=== PATIENT | female | born 1980 | race Caucasian/White ===

== ENCOUNTER 2018-05-23 22:10 | Emergency (ER) | payer SELFPAY ==
[2018-05-23 22:36] VITALS: BP 107/71; PULSE 71; RESP 18; TEMP 98.1; O2SAT 100
[2018-05-23 23:45] LABS: BASO # 0.1 K/uL (0.0-0.2); BASO % 0.6 % (0.0-2.0); EOS # 0.1 K/uL (0.0-0.7); EOS % 1.2 % (0.0-4.0); HEMOGLOBIN 11.8 g/dL (12.0-16.0); LYMPH # 1.7 K/uL (1.0-4.3); LYMPH % 18.7 % (20.0-40.0); MEAN CELL VOLUME 96.5 fl (81.0-99.0); MEAN CORPUSCULAR HGB CONC 34.2 g/dL (33.0-37.0); MEAN PLATELET VOLUME 12.1 fl (7.2-11.7); MONO # 0.7 K/uL (0.0-0.8); MONO % 7.1 % (0.0-10.0); NEUT # 6.7 K/uL (1.8-7.0); NEUT % 72.4 % (50.0-75.0); RBC 3.57 Mil/uL (3.80-5.20); RED CELL DISTRIBUTION WIDTH 13.1 % (11.5-14.5); WHITE BLOOD COUNT 9.3 K/uL (4.8-10.8)
[2018-05-24 00:11] LABS: SQUAMOUS EPITHIAL 2 /hpf (0-5); URINE BACTERIA OCC (<OCC); URINE BILIRUBIN NEGATIVE (NEGATIVE); URINE BLOOD NEGATIVE (NEGATIVE); URINE CLARITY CLOUDY (Clear); URINE COLOR YELLOW (YELLOW); URINE GLUCOSE (UA) NEG (NEGATIVE); URINE LEUKOCYTE ESTERASE NEG Leu/uL (Negative); URINE PROTEIN NEGATIVE (NEGATIVE); URINE UROBILINOGEN 0.2-1.0 mg/dL (0.2-1.0)
--- NOTE | 2018-05-24 00:49 | ED PDOC ---
HPI: Female Pain Time Seen by Provider: 05/23/18 22:57 Chief Complaint (Nursing): Female Genitourinary Chief Complaint (Provider): Female Genitourinary History Per: Patient History/Exam Limitations: no limitations Onset/Duration Of Symptoms: Days (x7) Current Symptoms Are (Timing): Still Present Additional Complaint(s): 38 y/o female with a PMHx of presents to the ED for evaluation of vaginal bleeding and , onset one week ago. Patient reports she is visiting from [place]. Patient states while in [place] one week ago she developed vaginal bleeding. Patient reports of being evaluated in [place] and had a workup last where she had blood work and an US performed. Patient reports Beta-HCG level at that time was 30,600 and US showed 6 week . Patient states she was started on progesterone. Patient describes vaginal bleeding as spotting and coffee colored with no clots or pain. PAtient speaks Mauritian and history obtained through patient's friend who translated at her request; [employer] services were declined. PMD: no provider Past Medical History Reviewed: Historical Data, Nursing Documentation, Vital Signs Vital Signs: Last Vital Signs Temp 98.1 F 05/23/18 22:31 Pulse 71 05/23/18 22:31 Resp 18 05/23/18 22:31 BP 107/71 05/23/18 22:31 Pulse Ox 100 05/23/18 22:31 - Medical History PMH: No Chronic Diseases - Surgical History Surgical History: Other surgeries: Fallopian tube Blockage removal - Family History Family History: States: Unknown Family Hx - Allergies Allergies/Adverse Reactions: Allergies Allergy/AdvReac Type Severity Reaction Status Date / Time No Known Allergies Allergy Verified 05/23/18 22:31 Review of Systems ROS Statement: Except As Marked, All Systems Reviewed And Found Negative Genitourinary Female: Positive for: Vaginal Bleeding Physical Exam - Reviewed Nursing Documentation Reviewed: Yes Vital Signs Reviewed: Yes - Physical Exam Appears: Positive for: No Acute Distress Head Exam: Positive for: ATRAUMATIC, NORMOCEPHALIC Skin: Positive for: Normal Color, Warm, Dry Eye Exam: Positive for: Normal appearance, EOMI, PERRL Neck: Positive for: Normal, Painless ROM Cardiovascular/Chest: Positive for: Regular Rate, Rhythm. Negative for: Murmur Respiratory: Positive for: Normal Breath Sounds. Negative for: Respiratory Distress Gastrointestinal/Abdominal: Positive for: Normal Exam, Soft. Negative for: Te nderness Back: Positive for: Normal Inspection. Negative for: L CVA Tenderness, R CVA Tenderness, Vertebral Tenderness Extremity: Positive for: Normal ROM. Negative for: Deformity Neurologic/Psych: Positive for: Alert, full stack developer II-XII. Negative for: Motor/Sensory Deficits - Laboratory Results Result Diagrams: 05/23/18 23:25 Lab Results: Urine Color Yellow (YELLOW) 05/23/18 23:58 Urine Clarity Cloudy (Clear) 05/23/18 23:58 Urine pH 6.0 (5.0-8.0) 05/23/18 23:58 Ur Specific [place] 1.025 (1.003-1.030) 05/23/18 23:58 Urine Protein Negative mg/dL (NEGATIVE) 05/23/18 23:58 Urine Glucose (UA) Neg mg/dL (NEGATIVE) 05/23/18 23:58 Urine Ketones Trace mg/dL (NEGATIVE) 05/23/18 23:58 Urine Blood Negative (NEGATIVE) 05/23/18 23:58 Urine Nitrate Positive (NEGATIVE) H 05/23/18 23:58 Urine Bilirubin Negative (NEGATIVE) 05/23/18 23:58 Urine Urobilinogen 0.2-1.0 mg/dL (0.2-1.0) 05/23/18 23:58 Ur Leukocyte Esterase Neg Rosanne/uL (Negative) 05/23/18 23:58 Urine RBC (Auto) 3 /hpf (0-3) 05/23/18 23:58 Urine Microscopic WBC 3 /hpf (0-5) 05/23/18 23:58 Ur Squamous Epith Cells 2 /hpf (0-5) 05/23/18 23:58 Urine Bacteria Occ (<OCC) H 05/23/18 23:58 Beta HCG, Quant 79825.00 mIU/mL 05/23/18 23:25 - ECG O2 Sat by Pulse Oximetry: 100 (RA) Pulse Ox Interpretation: Normal Medical Decision Making Medical Decision Making: Time: 2256 Impression: 38 y/o female presenting with vaginal bleeding in early Plan: -- Type and Screen -- Beta-HCG, Quantitative -- ED Urine -- ED Urine Dipstick -- CBC with Differentials Time: 2338 Plan: -- US OB Transvaginal Time: 16 US RESULTS Findings: The uterus measures 8.6x5.6 cm. Normal cervical length measuring 4 cm. Closed cervix. Single, live intrauterine gestation. heart rate 126 beats per minute. Estimated gestational age 6 weeks and 3 days. Normal right ovary. Nonvisualization of the left ovary. Impression: Single, live intrauterine gestation. No abnormality is seen. Electronically signed on May 24, 2018 12:17:22 AM EST by: Robert Villatoro M.D., Certified by GAIL, K, Neuroradiology Time: 18 Plan: -- ABO/RH Type Time: 58 -- Patient is stable for discharge home with a diagnosis of a threatened miscarriage. Return precautions provided. Patient instructed to follow up with OB on return to [place]. Scribe Attestation: Documented by Jackson Romero, acting as a scribe for Heriberto Edmonds MD. Provider Scribe Attestation: All medical record entries made by the Scribe were at my direction and personally dictated by me. I have reviewed the chart and agree that the record accurately reflects my personal performance of the history, physical exam, medical decision making, and the department course for this patient. I have also personally directed, reviewed, and agree with the discharge instructions and disposition. Disposition - Clinical Impression Clinical Impression: Vaginal bleeding affecting early - Patient ED Disposition Is Patient to be Admitted: No Counseled Patient/Family Regarding: Studies Performed, Diagnosis, Need For Followup - Disposition Referrals: Suraj Bianchi DO [Staff Provider] - Disposition: Routine/Home Disposition Time: 00:59 Condition: STABLE Instructions: Bleeding With Forms: ZAOZAO (Icelandic)
--- NOTE | 2018-05-24 11:24 | US ---
Date of service: 05/23/2018 PROCEDURE: OB Pelvic Ultrasound HISTORY: preg vag bld LMP: 04/13/2018 [place] by LMP 01/18/2019 COMPARISON: None available. FINDINGS: UTERUS: Gestational sac: 18 mm, equivalent to 6 weeks 1 day gestational age [place]-rump length 6 mm equivalent to 6 weeks 3 days gestational age Heart rate: 122 bpm. age (Ultrasound estimated): 6 weeks 2 days [place]-gestational hemorrhage: None. Date of delivery (Ultrasound estimated) : 01/14/2019 3 mm yolk sac visualized. Uterus measures 8.6 x 5.0 x 6.0 cm. Normal in size and appearance. CERVIX: Measures 4.0 cm. Long and closed. No cervical abnormality seen. RIGHT OVARY: Measures 2.6 x 1.5 x 2.8 cm. No mass lesion. Normal flow. LEFT OVARY: Not visualized FREE FLUID: None. OTHER FINDINGS: None. IMPRESSION: Single live intrauterine gestation of approximately 6 weeks 2 days gestational age. heart rate 122. No subchorionic hemorrhage. Cervix long and closed. The preliminary findings for this examination were reported by [facility] at 12:17 a.m. on 05/24/2018. There is concurrence of this report with the preliminary findings.
== END 2018-05-24 01:07 | disposition home or self-care (01) ==
LOC: H.ER 22:10
DX: O20.0 Threatened abortion (principal); Z3A.01 Less than 8 weeks gestation of pregnancy